=== PATIENT | male | born 1970 | race Caucasian/White ===

== ENCOUNTER 2020-06-29 06:01 | Observation (INO) | payer OTHER ==
[~2020-06-29] VITALS: Ht 160 cm; Wt 63.5 kg
[2020-06-29 06:42] VITALS: BP 140/79
[2020-06-29 20:26] VITALS: BP 152/73
[2020-06-29 20:30] VITALS: Ht 160 cm; Wt 63.5 kg
[2020-06-30 04:09] VITALS: BP 105/66
[2020-06-30 08:18] VITALS: BP 125/68
[2020-06-30 12:28] VITALS: BP 121/63
[2020-06-30 12:42] VITALS: BP 119/64
[2020-06-30 14:21] VITALS: BP 119/64
== END 2020-06-30 16:05 | disposition home or self-care (01) ==
LOC: DS 06:01 → EDSTATUS 07:30 → MU 07:30
PROVIDERS: ADMIT Orthopaedic Surgery; ATTEND Orthopaedic Surgery
DX: M87.851 Other osteonecrosis, right femur (principal)
CPT/HCPCS: 94150; 97112-GP; 97116-GP; 97530-GP; G0378; J0690; J1885; J2270; J2274; J2405; J2765; J3010; J3490; J7120